=== PATIENT | male | born 1975 | race Caucasian/White ===

== ENCOUNTER 2017-12-26 23:02 | Emergency (ER) | payer SELFPAY ==
[~2017-12-26] VITALS: Ht 182.9 cm; Wt 57.9 kg
[2017-12-26 23:19] VITALS: BP 131/90
== END 2017-12-26 23:41 | disposition left against medical advice (07) ==
LOC: ER 23:03
DX: K94.19 Other complications of enterostomy (principal); Z53.21 Procedure and treatment not carried out due to patient leaving prior to being seen by health care provider

== ENCOUNTER 2018-01-07 09:55 | Emergency (ER) | payer OTHER ==
[~2018-01-07] VITALS: Ht 182.9 cm; Wt 72.0 kg
[2018-01-07 11:51] VITALS: BP 142/99
== END 2018-01-07 11:53 | disposition home or self-care (01) ==
LOC: ER 09:56
DX: Z43.1 Encounter for attention to gastrostomy (principal); K21.9 Gastro-esophageal reflux disease without esophagitis; R10.9 Unspecified abdominal pain; Z88.5 Allergy status to narcotic agent
CPT/HCPCS: 99281